=== PATIENT | female | born 1975 | race Caucasian/White ===

== ENCOUNTER 2017-04-23 16:38 | Emergency (ER) | payer SELFPAY ==
[~2017-04-23] VITALS: Ht 154.9 cm; Wt 87.5 kg
[2017-04-23 16:58] VITALS: BP 121/67
== END 2017-04-23 18:45 | disposition home or self-care (01) ==
LOC: ED 16:38
DX: H00.034 Abscess of left upper eyelid (principal)
CPT/HCPCS: 90715

== ENCOUNTER 2017-04-30 09:50 | Emergency (ER) | payer SELFPAY ==
[~2017-04-30] VITALS: Ht 154.9 cm; Wt 86.6 kg
[2017-04-30 10:20] VITALS: BP 120/85
== END 2017-04-30 10:49 | disposition home or self-care (01) ==
LOC: ED 09:50
DX: H01.004 Unspecified blepharitis left upper eyelid (principal)

== ENCOUNTER 2017-05-08 16:33 | Emergency (ER) | payer SELFPAY ==
[~2017-05-08] VITALS: Ht 154.9 cm; Wt 86.6 kg
[2017-05-08 16:36] VITALS: BP 133/87; Ht 154.9 cm; Wt 86.6 kg
== END 2017-05-08 17:37 | disposition left against medical advice (07) ==
LOC: ED 16:33
DX: Z53.21 Procedure and treatment not carried out due to patient leaving prior to being seen by health care provider (principal)

== ENCOUNTER 2017-07-04 19:24 | Emergency (ER) | payer MEDICAID ==
[~2017-07-04] VITALS: Ht 154.9 cm; Wt 85.4 kg
[2017-07-04 19:37] VITALS: Ht 154.9 cm; Wt 85.4 kg
[2017-07-04 21:14] VITALS: BP 123/77
== END 2017-07-04 21:14 | disposition home or self-care (01) ==
LOC: ED 19:24
DX: R51 Headache (principal)
CPT/HCPCS: J1885; Q0162

== ENCOUNTER 2017-12-04 19:56 | Emergency (ER) | payer MEDICAID ==
[~2017-12-04] VITALS: Ht 154.9 cm; Wt 89.8 kg
[2017-12-04 20:23] VITALS: Ht 154.9 cm; Wt 89.8 kg
[2017-12-04 22:35] VITALS: BP 146/66
== END 2017-12-04 22:35 | disposition home or self-care (01) ==
LOC: ED 19:56
DX: R51 Headache (principal); M32.9 Systemic lupus erythematosus, unspecified
CPT/HCPCS: J1885